=== PATIENT | female | born 1935 | race Hispanic/Latino ===

== ENCOUNTER → 2020-04-15 | Outpatient (CLI) | payer OTHER | END | disposition home or self-care (01) | LOC: OIH 13:09 | PROVIDERS: ATTEND Internal Medicine | DX: M17.0 Bilateral primary osteoarthritis of knee (principal); M85.842 Other specified disorders of bone density and structure, left hand; M85.841 Other specified disorders of bone density and structure, right hand; M19.041 Primary osteoarthritis, right hand; M19.042 Primary osteoarthritis, left hand; M85.88 Other specified disorders of bone density and structure, other site ==